=== PATIENT | female | born 1960 | race Caucasian/White ===

== ENCOUNTER 2020-08-10 13:00 | Emergency (ER) | payer MEDICAID ==
[~2020-08-10] VITALS: Ht 170.2 cm; Wt 101.3 kg
[~2020-08-10 13:00] MED LIST: HYDR1TAB13; LEVO100T; [UNRECOGNIZED DRUG - REMARK]; lexapro; potassium; warfarin
--- NOTE | 2020-08-10 13:52 | NUR ---
CONTACT WITH PT. 60 YR OLD FEMALE HERE WITH C/O "PAIN IN MY LITTLE FINGER AND RING FINGER" (RIGHT HAND) WOKE UP ABOUT 0430 WITH IT. NO KNOWN INJURY
[2020-08-10] MEDS ORDERED: KETOROLAC 30 MG/1 ML ONE (14:05)
[2020-08-10] MEDS ORDERED: ACETAMINOPHEN 325 MG TABLET ONE (14:05)
--- NOTE | 2020-08-10 14:13 | NUR ---
PT MEDICATED ORDERED. PORTABLE XRAY IN PROCESS. NO OTHER NEEDS EXPRESSED AT THIS TIME.
[2020-08-10] MEDS ORDERED: ACETAMINOPHEN 325 MG TABLET PO ONE (14:30)
[2020-08-10] MEDS ORDERED: KETOROLAC 30 MG/1 ML IM ONE (14:30)
--- NOTE | 2020-08-10 15:01 | NUR ---
PT DRESSED AND IN MOTORIZED W/C. NO SIG CHANGE IN PAIN LEVEL AT THIS TIME. NO IV TO DC. REVIEWED DC INSTRUCTIONS WITH PT. UNDERSTANDING VERBALIZED. PT LEFT VIA W/C.
[2020-08-10 15:02] VITALS: BP 116/54
== END 2020-08-10 15:04 | disposition home or self-care (01) ==
LOC: ED 13:42
DX: M79.644 Pain in right finger(s) (principal); F17.200 Nicotine dependence, unspecified, uncomplicated; E66.01 Morbid (severe) obesity due to excess calories; Z86.718 Personal history of other venous thrombosis and embolism; Z68.35 Body mass index [BMI] 35.0-35.9, adult
CPT/HCPCS: 73130; 96372; 99283; J1885